=== PATIENT | female | born 1975 | race Two or more races ===

== ENCOUNTER 2019-02-15 00:24 | Emergency (ER) | payer OTHER ==
[~2019-02-15] VITALS: Ht 162.6 cm; Wt 79.4 kg
[2019-02-15] MEDS ORDERED: CLONAZEPAM0.5 M1 (00:38)
[2019-02-15] MEDS ORDERED: NEURONTIN300 MG (00:39)
[2019-02-15] MEDS ORDERED: METFORMIN HCL500 MG (00:39)
[2019-02-15] MEDS ORDERED: LANTUS (01:23)
[2019-02-15] MEDS ORDERED: [UNRECOGNIZED DRUG - OTHER] (01:24)
== END 2019-02-16 16:02 | disposition designated cancer center or children's hospital (05) ==
LOC: ER 00:24 → CPU-OBS 00:35
DX: I21.29 ST elevation (STEMI) myocardial infarction involving other sites (principal); I24.9 Acute ischemic heart disease, unspecified; I10 Essential (primary) hypertension; R07.89 Other chest pain; Z72.0 Tobacco use
CPT/HCPCS: G0378; G0379; 93005 ×2; 93306

== ENCOUNTER 2020-12-25 05:58 | Day surgery (SDC) | payer OTHER ==
[~2020-12-25 05:58] MED LIST: ATORVASTATIN CA80 MG PO; BRILINTA90 MG PO; CLONAZEPAM0.5 M1; HUMALOG100 UNIT/1; ISORBIDE PO; LANTUS; METFORMIN HCL500 MG; NEURONTIN300 MG; PROGEST PO; RANEXA500 MG PO; [UNRECOGNIZED DRUG - OTHER]
== END 2020-12-25 16:00 | disposition home or self-care (01) ==
LOC: CIR.AMB 05:58
PROVIDERS: ATTEND Orthopaedic Surgery Hand Surgery
DX: M72.0 Palmar fascial fibromatosis [Dupuytren] (principal); Z20.822 Contact with and (suspected) exposure to COVID-19